=== PATIENT | male | born 1980 | race Caucasian/White ===

== ENCOUNTER 2019-03-30 07:49 | Day surgery (SDC) | payer BC ==
--- NOTE | 2019-03-27 11:23 | EKG ---
Test Date: 2019-03-26 Test Time: 16:53:24 Day Habilitation Specialist: JOSHUA MEASUREMENT RESULTS: Intervals: Rate: 66 TX: 178 QRSD: 100 QT: 382 QTc: 400 [place]: P: 59 TX: 178 QRS: 20 T: 48 INTERPRETIVE STATEMENTS: Normal sinus rhythm Normal ECG No previous ECG available for comparison Electronically Signed On 03-27-19 11:19:34 CDT by Aries Hines
[2019-03-30] MEDS ORDERED: OXYMETAZOLINE HCL 0.05% 15ML NAS ONE ×3 (08:09→09:14)
[2019-03-30] MEDS ORDERED: Ringers Lactate 1,000 ML IV ONE (08:09)
[2019-03-30] MEDS ORDERED: MIDAZOLAM HCL 2 MG/2 ML INJ ONE (08:11)
[2019-03-30] MEDS ORDERED: PROPOFOL 200 MG/20 ML VIAL IV ONE (08:11)
[2019-03-30] MEDS ORDERED: LIDOCAINE 2% MPF 5 ML VIAL ONE (08:13)
[2019-03-30] MEDS ORDERED: FENTANYL CITR 100 MCG/2 ML ONE (08:13)
[2019-03-30] MEDS ORDERED: ONDANSETRON 4 MG/2 ML VIAL ONE (08:27)
[2019-03-30] MEDS ORDERED: GLYCOPYRROLATE 0.2 MG/ML SYR ONE ×5 (08:27→11:44)
[2019-03-30] MEDS ORDERED: ROCURONIUM 50 MG/5 ML VIAL IV ONE ×2 (08:28→08:32)
[2019-03-30] MEDS ORDERED: NEOSTIGMINE 1 MG/ML -10 ML VIAL ONE (08:31)
[2019-03-30] MEDS ORDERED: DIAZEPAM 5 MG TABLET ONE (08:37)
[2019-03-30] MEDS ORDERED: DIAZEPAM 5 MG TABLET PO ONE (08:45)
[2019-03-30] MEDS ORDERED: GLYCOPYRROLATE 0.2 MG/ML SYR IV ONE (08:46)
[2019-03-30] MEDS ORDERED: MORPHINE 10 MG/ML VIAL ONE (09:02)
[2019-03-30] MEDS ORDERED: LIDOCAINE 1% W/EPI 1:100,000 MDV 20 ML VIAL ONE (09:14)
[2019-03-30] MEDS ORDERED: dexAMETHasone 10 MG/ML VIAL ONE (09:47)
--- NOTE | 2019-03-30 10:44 | P.BOP ---
Preoperative diagnosis: septal deviation, nasal obstruction Postoperative diagnosis: same Primary procedure: septoplasty Business Education Teacher: NONE,NONE Estimated blood loss: 15ml Specimen: none Anesthesia: General Complications: None Implants: none Fluids & blood products: crystalloid 700ml Transferred to: Recovery Room Condition: Good
[2019-03-30] MEDS: HYDROMORPHONE HCL 2 MG/ML inj ONE ×2 (11:06→11:59)
--- NOTE | 2019-03-30 23:20 | OP ---
Date of Procedure: 03/30/2019 Surgeon: Carolann Macias MD Postoperative Diagnoses: Septal deviation, nasal obstruction. Postoperative Diagnosis: Septal deviation, nasal obstruction. Procedure: Septoplasty. Indication For Procedure: Zane Rodriguez is a 38-year-old, who presented with snoring and complaints of nasal obstruction. He was noted to have a septal deviation and underwent a sleep study that showed an AHI of less than 1. Options were discussed with the patient due to nasal obstruction, he opted fo r septoplasty. We discussed prior to his surgery that repair of the deviated septum may or may not r esult in improvement in his snoring. The risks, benefits, and alternatives to the procedure were dis cussed with the patient, who agreed to proceed. Description Of Procedure: The patient was brought to the operating room. He was placed under genera l anesthesia via endotracheal tube. The head of bed was turned 90 degrees and the nasal hair were tr immed with scissors. The septum was injected with 1% lidocaine with epinephrine and the nasal cavity was packed with Afrin-soaked pledgets. After time for effect, the pledgets were removed and a right hemitransfixion incision was made. The caudal aspect of the septum was noted to deviate anteriorly into the nasal vestibule on the right side. A mucoperichondrial flap was elevated. The patient had a severe bony septal spur deviating into the right nasal cavity. The Dillon elevator was used to sep arate the bone from the cartilaginous septum and the septal spur was removed using heavy scissors. A Sergio rongeur and Gautam to remove the bony deviation. This resulted in significant improvement in the posterior airway. The septum was then reassessed. A small sliver of the anterior right caud al septum was removed, however, this did not result in significant improvement in the right nasal air way and further resection was putting at risk the support of the L strut. A 5-0 PDS suture was then used to move the inferior aspect of the septum and secured to the periosteum of the anterior nasal sp ine. This resulted in significant improvement in the shape of the nostril, though the tip of the nos e still deviated slightly to the right. The nose was packed with Afrin-soaked pledgets to aid in hem ostasis. After removal, the hemitransfixion incision was closed using running sutures and a plain gu t suture was used to place mattressing sutures into the anterior portion of the septum to reduce risk of septal hematoma. The nasal cavity was thoroughly irrigated with saline and suctioned. There was no significant bleeding or swelling of the septum noted at that time. The consideration was made fo r placement of Salas splint, however, the left mucoperichondrial flap appeared well intact with no ev idence of laceration. There was laceration on the right side over the edge of the previous bony spur , however, bleeding was minimal and placement of splints was deferred. Patient was then returned to care of Anesthesia for awakening and extubation in the operating room, which proceeded without diffic ulty. Disposition: Patient will be discharged home later today in the care of his family and followup with Dr. Macias in about 10 days for evaluation of healing. TRINO/ALISON Voice ID: [id number] Report ID: [id number]
== END 2019-03-30 13:21 | disposition home or self-care (01) ==
LOC: OR 07:49
PROVIDERS: ATTEND Otolaryngology
PROC: 09SM0ZZ Reposition Nasal Septum, Open Approach (ICD-10-PCS; principal; 2019-03-30 09:45)
DX: J34.2 Deviated nasal septum (principal); J34.89 Other specified disorders of nose and nasal sinuses; R06.83 Snoring; F98.8 Other specified behavioral and emotional disorders with onset usually occurring in childhood and adolescence; F32.9 Major depressive disorder, single episode, unspecified; Z82.3 Family history of stroke; Z80.9 Family history of malignant neoplasm, unspecified
CPT/HCPCS: 93005; 30520; J2704; J2710; J2250; J1170; J3010; J1100; J2405